=== PATIENT | female | born 1990 | race African-American/Black ===

== ENCOUNTER 2024-03-21 15:12 | Emergency (ER) | payer OTHER ==
[~2024-03-21] VITALS: Ht 162.6 cm; Wt 61.7 kg
[2024-03-21] MEDS ORDERED: diphenhydrAMINE HCL 50 MG/ML VIAL ONE (19:00)
[2024-03-21] MEDS ORDERED: HALOPERIDOL LACTATE INJ 5 MG/ML VIAL ONE (19:00)
[2024-03-21] MEDS ORDERED: LORAZEPAM INJ 2 MG/ML VIAL ONE (19:01)
[2024-03-21] MEDS: diphenhydrAMINE HCL 50 MG/ML VIAL IM ONE (19:05)
[2024-03-21] MEDS: LORAZEPAM INJ 2 MG/ML VIAL IM ONE (19:05)
[2024-03-21] MEDS: HALOPERIDOL LACTATE INJ 5 MG/ML VIAL IM ONE (19:07)
[2024-03-21] MEDS ORDERED: GLUCAGON,HUMAN RECOMBINANT 1 MG/VIAL VIAL ONE (22:55)
[2024-03-21] MEDS ORDERED: WATER FOR INJECTION,STERILE 10 ML ONE (22:55)
[2024-03-21] MEDS: GLUCAGON,HUMAN RECOMBINANT 1 MG/VIAL VIAL SQ ONE (22:56)
[2024-03-21 23:43] VITALS: BP 131/70; TEMP 97.9; O2SAT 100
== END 2024-03-21 23:44 ==
LOC: ER 15:18
DX: S09.90XA Unspecified injury of head, initial encounter (principal); V89.2XXA Person injured in unspecified motor-vehicle accident, traffic, initial encounter; E11.9 Type 2 diabetes mellitus without complications; Y93.89 Activity, other specified; Y92.488 Other paved roadways as the place of occurrence of the external cause; Y99.8 Other external cause status
CPT/HCPCS: 99285; 70450; 96372; 82962 ×2; J1610; J2060; J1200; J1630